=== PATIENT | male | born 1955 | race Caucasian/White ===

== ENCOUNTER → 2019-05-01 | Outpatient (CLI) | payer OTHER ==
--- NOTE | 2019-05-01 14:49 | PCVCIMAG ---
APPROVED REPORT Study performed: 05/01/2019 13:51:58 Exam: Stress Echocardiogram Indication: CAD s/p PCI, Dyspnea , Hypertension, Hyperlipidemia Patient Location: Echo lab Stress Nurse: Tuyet Bocanegra RN Status: routine Ht: 5 ft 10 in HR: 86 bpm BP: 110/60 mmHg Rhythm: NSR Procedure The patient underwent an Exercise Stress Test using the Pancho Protocol. Blood pressure, heart rate, and EKG were monitored. An Echocardiogram was performed by community planning technician in four stages in quad fashion. At peak stress, four selected images were obtained and placed side by side with resting images for comparison. Stress Test Details Stress Test: Exercise stress testing was performed using a Pancho protocol. HR Resting HR: 86 bpmMax Heart Rate (APMHR): 157 bpm Max HR Achieved: 131 bpmTarget HR (85% APMHR): 133 bpm % of APMHR: 83 Recovery HR: 93 bpm HR response to stress: Normal HR response to stress BP Resting BP: 110/60 mmHg Max BP: 160/80 mmHg Recovery BP: 146/70 mmHg BP response to stress: Normal blood pressure response to stress. ECG Resting ECG: Sinus Rhythm Stress ECG: Sinus Rhythm ST Change: Normal Arrhythmia: None Recovery ECG: Sinus Rhythm Recovery ST Change: Normal Recovery Arrhythmia: None Clinical Reason for Termination: Maximal effort Stress Symptoms: Dyspnea, leg fatigue Exercise duration: 4 min 52 sec Highest Stage Achieved: Stage 2: 2.5 mph at 12% grade. Exercise capacity: 7 METs Overall Exercise Capacity for Age: Poor Scale: Sedentary Angina Score: None Pre-Stress Echo The resting Echocardiogram showed normal left ventricular contractility with an estimated Ejection Fraction of about 50-55%. Normal wall motion in all segments on baseline images. Post-Stress Echo The stress Echocardiogram showed normal left ventricular contractility with an estimated Ejection Fraction of about 60-65%. Normal augmentation of wall motion in all segments on post stress images. Clinical No clinical or ECG evidence for ischemia. Conclusion Clinical Response: Non-ischemic Exercise Capacity: Below Average Stress ECG Response: Non-ischemic Stress Echo Images: Non-ischemic Non-diagnostic study due to inability of the patient to achieve 85% of maximal HR and only 4:52 mins in duration. Other Information Study Quality: Adequate <Conclusion> Non-diagnostic study due to inability of the patient to achieve 85% of maximal HR and only 4:52 mins in duration.
== END | disposition home or self-care (01) ==
LOC: PCVCIMAG 13:47
PROVIDERS: ATTEND Internal Medicine Cardiovascular Disease
DX: I25.10 Atherosclerotic heart disease of native coronary artery without angina pectoris (principal); I25.84 Coronary atherosclerosis due to calcified coronary lesion; R06.02 Shortness of breath; E11.65 Type 2 diabetes mellitus with hyperglycemia; I10 Essential (primary) hypertension; E78.5 Hyperlipidemia, unspecified
CPT/HCPCS: 93325; 93351